=== PATIENT | male | born 1945 | race Caucasian/White ===

== ENCOUNTER → 2021-08-20 | Outpatient (CLI) | payer MEDICARE ==
--- NOTE | 2021-08-20 14:20 | Diagnostic Imaging Report ---
EXAMINATION: CT chest without contrast (lung screening). TECHNIQUE: Multiple contiguous axial images were obtained through the chest without the use of intravenous contrast according to lung cancer screening protocol. All CT scans use one or more of the following dose optimizing techniques: automated exposure control, MA and/or KvP adjustment based on patient size and exam type or iterative reconstruction. HISTORY: 60 pack year history of smoking. COMPARISON: None available. FINDINGS: There is no edema or pneumonia. No pleural effusion. No pneumothorax. There is a 5 mm left upper lobe pulmonary nodule. There is a small amount of mucus in the trachea. There is no axillary or supraclavicular lymphadenopathy. There is no mediastinal lymphadenopathy. Heart size is normal. There are moderate coronary artery calcifications. No pericardial effusion. Aorta is normal in caliber. Limited views of the upper abdomen are unremarkable. There are no suspicious osseus lesions. IMPRESSION: 1. No suspicious pulmonary nodules. LUNG-RADS CATEGORY: 2 MODIFIER: None. Dictated by: Dictated on workstation # [id number]
== END ==
LOC: RAD 13:45
PROVIDERS: ATTEND Family Medicine
DX: Z12.2 Encounter for screening for malignant neoplasm of respiratory organs (principal); Z87.891 Personal history of nicotine dependence
CPT/HCPCS: 71271

== ENCOUNTER 2022-03-01 02:22 | Observation (INO) | payer MEDICARE, OTHER ==
[2022-03-01] VITALS (8 sets, daily range): BP systolic 128–164; BP diastolic 74–85
[~2022-03-01] VITALS: Ht 188 cm; Wt 84.0 kg
[2022-03-01] MEDS ORDERED: LACTATED RINGERS 1,000 ML IV SCH (03:00)
[2022-03-01] MEDS ORDERED: ONDANSETRON 4 MG/2 ML (SDV) Z0FRAN IVP PRN (03:00)
[2022-03-01] MEDS ORDERED: LACTATED RINGERS 1,000 ML IV ONE (03:09)
[2022-03-01] MEDS ORDERED: MELO15TA39 PO (05:09)
[2022-03-01] MEDS ORDERED: AMLO-250 PO (05:09)
[2022-03-01] MEDS ORDERED: LOSA50TA63 PO (05:09)
[2022-03-01] MEDS ORDERED: EZET10TA49 PO (05:09)
[2022-03-01] MEDS ORDERED: LEVO137T32 PO (05:09)
[2022-03-01] MEDS ORDERED: LIDOCAINE PF 2% 5 ML (XYLOCAINE) VIAL ONE (08:31)
[2022-03-01] MEDS ORDERED: SEVOFLURANE (ULTANE) 15 ML INHAL SOLN ONE (08:31)
[2022-03-01] MEDS ORDERED: SUCCINYLCHOLINE INJ 100 MG/5 ML SYR/VIAL ONE (08:31)
[2022-03-01] MEDS ORDERED: proPOfol 200 MG/20 ML (DIPRIVAN) VIAL IV ONE (08:31)
--- NOTE | 2022-03-01 08:49 | Consultation - Surgery ---
History of Present Illness History of Present Illness Patient Consulted On(truman/time) 03/01/22 08:44 Time Seen by Provider: 08:22 History of Present Illness Pt is a 76 yo male who presented to [facility] with inability to swallow after eating steak. Stated he can't even swallow his spit. Pain was not too bad. When I saw him this morning he stated he thought the swallowing may have been a little better. ER last night told me he has had dilation of esophagus before, but he doesn't remember it. Had hiatal hernia repair 3 years ago, "my stomach was up above my diaphragm and my esophagus zig-zagged down". He stated he has not had an EGD since the surgery. Pain this am is 2-3 out of 10. He states this happens almost everytime he eats steak, "I let it slide down after chewing a bit, last night", "usually it passes after a little while, this time it didn't". Allergies and Home Medications Allergies Coded Allergies: No Known Drug Allergies (Unverified , 03/01/22) Patient Home Medication List Home Medication List Reviewed: Yes Amlodipine Besylate (Amlodipine Besylate) 5 Mg Tablet, 5 MG PO DAILY, (Reported) Entered as Reported by: KAI WALKER on 03/01/22508 Last Action: New Order Ezetimibe (Ezetimibe) 10 Mg Tablet, 10 MG PO DAILY, (Reported) Entered as Reported by: KAI WALKER on 03/01/22508 Last Action: New Order Levothyroxine Sodium (Synthroid) 137 Mcg Tablet, 137 MCG PO DAILY, (Reported) Entered as Reported by: KAI WALKER on 03/01/22508 Last Action: New Order Losartan Potassium (Losartan Potassium) 50 Mg Tablet, 50 MG PO BID, (Reported) Entered as Reported by: KAI WALKER on 03/01/22508 Last Action: New Order Meloxicam (Meloxicam) 15 Mg Tablet, 15 MG PO DAILY, (Reported) Entered as Reported by: KAI WALKER on 03/01/22508 Last Action: New Order Past [id number] Hx Patient Social History Smoking Status: Never a Smoker Type Used: Smokeless Tobacco Alcohol Use?: Yes Have you traveled recently?: No Surgeries History of Surgeries: Yes (hiatal hernia repair) Respiratory History of Respiratory Disorde: No Cardiovascular History of Cardiac Disorders: Yes Cardiac Disorders: Coronary Artery Disease, Hypertension Neurological History of Neurological Disord: No Reproductive System Hx Reproductive Disorders: No Gastrointestinal History of Gastrointestinal Di: Yes Gastrointestinal Disorders: Gastroesophageal Reflux, Esophagitis, Hiatal Hernia Musculoskeletal History of Musculoskeletal Dis: Yes Musculoskeletal Disorders: Arthritis Endocrine History of Endocrine Disorders: Yes Endocrine Disorders: Hypothyroidsim HEENT History of HEENT Disorders: Yes (poor dentition) Psychosocial History of Psychiatric Problem: No Family Medical History Significant Family History: Diabetes (brother) Review of Systems-General Constitutional: No fever, No malaise EENTM: dental problems, throat swelling; No blurred vision, No double vision, No mouth swelling Respiratory: No dyspnea on exertion, No short of breath Cardiovascular: No chest pain, No palpitations Gastrointestinal: abdominal pain; No nausea, No vomiting; other (can't swallow spit) Genitourinary: No dysuria, No hematuria Musculoskeletal: joint pain, joint swelling, muscle stiffness Skin: No change in color, No change in hair/nails Psychiatric/Neurological: Denies Anxiety, Denies Depressed, Denies Seizure Physical Exam-General Problems Physical Exam Vital Signs Vital Signs - First Documented 03/01/22 02:42 Temp 36.6 Pulse 80 Resp 18 B/P (MAP) 164/85 (111) Pulse Ox 98 O2 Delivery Room Air Capillary Refill : General Appearance: WD/WN, mild distress Eyes: Bilateral Eye PERRL, Bilateral Eye EOMI HEENT: pharynx normal; No scleral icterus (R), No scleral icterus (L); other (poor dentition) Respiratory: chest non-tender, lungs clear, normal breath sounds, no respiratory distress, no accessory muscle use Cardiovascular: regular rate, rhythm, no murmur Gastrointestinal: non tender, soft, no organomegaly, no pulsatile mass Back: no CVA tenderness, no vertebral tenderness Extremities: no pedal edema, no calf tenderness Neurologic/Psychiatric: corporate safety manager II-XII nml as tested, no motor/sensory deficits, alert, normal mood/affect, oriented x 3 Skin: normal color, warm/dry Lymphatic: no adenopathy (neck, axilla or groin) Assessment/Plan Assessment/Plan Assessment/Plan Dysphagia probable food bolus Plan EGD for removal of food, possible biopsy. Discussed risks and complications not limited to pain, bleeding and even possible esophageal perforation. We may also find the food has already passed. All questions answered to pt and his 's satisfaction. AYUSH RITTER DO March 01, 2022 08:49
[2022-03-01] MEDS ORDERED: LACTATED RINGERS 1,000 ML IV PRN (09:30)
--- NOTE | 2022-03-01 10:54 | Progress Note-Post Operative ---
Post-Operative Progess Note Surgeon (s)/Captain'S Assistant (s) Surgeon AYUSH RITTER DO Captain'S Assistant: none Pre-Operative Diagnosis Dysphagia, Food bolus Post-Operative Diagnosis same plus Erosive Esophagitis, Hiatal hernia Procedure & Operative Findings Date of Procedure 03/01/22 Procedure Performed/Findings EGD with removal of food bolus PROCEDURE NOTE: After informed consent was obtained, the patient was brought to the operating room, intubated in his bed and left in the supine position. The SENIOR ETL DEVELOPER then monitored his vitals the entire time, heart rate, blood pressure and pulse ox and the scope was inserted down the mouth and into the esophagus. On the way down noted a twist in the esophagus and then found the pieced of steak. Able to get a Paulson net around it, but had to take it in two pieces. Pushed the scope back down and into the stomach. On the way down, noted some severe erosive esophagitis and took a picture. Pushed into the stomach, pushed past the antrum into the duodenum. Duodenum looked good. Pulled back and retroflexed the scope, saw an appx 0.5cm hiatal hernia, took a picture of this and then pulled the scope into the GE junction, took another picture of the hiatal hernia. Then took pictures of the erosive esophagitis and then pushed the scope back into the stomach, suctioned all the air out of the stomach. At this point pulled the scope up the esophagus and out the mouth. The patient tolerated the procedure, and he recovered in endoscopy suite. Anesthesia Type GET Estimated Blood Loss Estimated blood loss (mL): none Specimens/Packing Specimens Removed none AYUSH RITTER DO March 01, 2022 10:54
[2022-03-01] MEDS ORDERED: SUCR1TAB36 PO (10:57)
[2022-03-01] MEDS ORDERED: PANT20TA18 PO (10:57)
--- NOTE | 2022-03-01 10:58 | Endoscopy Discharge Instruct ---
Endo Procedure/Findings Findings Procedure/Findings You must be on a liquid diet for the next 3-4 weeks 1.: Other Findings (Erosive Esophagitis) 2.: Hiatal Hernia Discharge Instructions - Activity: You might feel a little sleepy until tomorrow. This is due to the medicine you received to relax you. Until tomorrow, you should: NOT drive a car, operate machinery or power tools. NOT drink any alcoholic beverages. NOT make any important decisions or sign importortant papers. Do not return to work until tomorrow, unless otherwise instructed. Resume previous activities tomorrow. Diet: Start by taking liquids. If you tolerate liquids, advance to solid food. 1.: EGD in 6-8 weeks Notify Physician - If you experience excessive bleeding, unusual abdominal pain, fever, or chest pain, contact your doctor immediately. AYUSH RITTER DO March 01, 2022 10:58
--- NOTE | 2022-03-02 15:30 | Anesthesia-General Post-Op ---
MAC Patient Condition Mental Status/LOC: Same as Preop Cardiovascular: Satisfactory Nausea/Vomiting: Absent Respiratory: Satisfactory Pain: Controlled Complications: Absent Post Op Complications Complications None Follow Up Care/Instructions Patient Instructions None needed. Anesthesiology Discharge Order Discharge Order Patient is doing well, no complaints, stable vital signs, no apparent adverse anesthesia problems. No complications reported per nursing. LALO WILLIAM CRNA March 02, 2022 15:30
== END 2022-03-01 11:50 | disposition home or self-care (01) ==
LOC: 4TH 02:22
PROVIDERS: ADMIT Surgery; ATTEND Surgery
DX: T18.128A Food in esophagus causing other injury, initial encounter (principal); K22.10 Ulcer of esophagus without bleeding; K44.9 Diaphragmatic hernia without obstruction or gangrene
CPT/HCPCS: 87081

== ENCOUNTER 2022-04-09 05:34 | Outpatient (CLI) | payer MEDICARE, OTHER ==
[~2022-04-09] VITALS: Ht 188 cm; Wt 84.4 kg
[~2022-04-09 05:34] MED LIST: AMLO-250 PO; EZET10TA49 PO; LEVO137T32 PO; LOSA50TA63 PO; MELO15TA39 PO; PANT20TA18 PO; SUCR1TAB36 PO
== END 2022-04-14 10:58 | disposition home or self-care (01) ==
LOC: PREOP 05:34
PROVIDERS: ATTEND Surgery
DX: Z01.818 Encounter for other preprocedural examination (principal)

== ENCOUNTER 2022-04-21 07:15 | Day surgery (SDC) | payer MEDICARE, OTHER ==
[~2022-04-21] VITALS: Ht 188 cm; Wt 84.4 kg
[2022-04-21] MEDS ORDERED: LACTATED RINGERS 1,000 ML IV STA (07:21)
[2022-04-21] MEDS ORDERED: HURRICAINE EXT TUBE (BENZOCAINE) XX PRN (07:30)
[2022-04-21 07:38] VITALS: BP 165/75
[2022-04-21] MEDS ORDERED: PROPOFOL INJECTION 50 ML IV ONE (08:10)
[2022-04-21 08:30] VITALS: BP 108/65
--- NOTE | 2022-04-21 08:34 | Progress Note-Post Operative ---
Post-Operative Progess Note Surgeon (s)/Floating Derrick Operator (s) Surgeon AYUSH RITTER DO Floating Derrick Operator: none Pre-Operative Diagnosis Erosive Esophagitis Post-Operative Diagnosis mild gastritis mild esophagitis hiatal hernia Procedure & Operative Findings Date of Procedure 04/21/22 Procedure Performed/Findings EGD with bx PROCEDURE NOTE: After informed consent was obtained, the patient was brought to the endoscopy suite, placed in bed in left lateral decubitus position. He was administered IV sedation by the PATHOLOGY SPECIALIST who then monitored vitals the entire time, heart rate, blood pressure and pulse ox and the scope was inserted down the mouth through the esophagus into the stomach. On the way down, noted some very mild esophagitis, took a picture, pushed into the stomach, pushed past the antrum into the duodenum. Duodenum looked good. Pulled back and did a biopsy of antrum, then retroflexed the scope, saw hiatal hernia, took a picture of this and then pulled the scope into the GE junction, took another picture of the hiatal hernia and then did a biopsy of the GE junction. Pushed the scope back into the stomach and did a biopsy of the body of the stomach. Next suctioned all the air out of the stomach. At this point pulled the scope up the esophagus and out of the mouth. The esophagus looked completely healed and the GE junction did not appear strictured; very easily got the scope into the stomach. The patient tolerated the procedure, and he recovered in endoscopy suite. Anesthesia Type IV sedation by PATHOLOGY SPECIALIST Estimated Blood Loss Estimated blood loss (mL): scant Specimens/Packing Specimens Removed antral bx body of stomach bx GE jxn bx AYUSH RITTER DO Apr 21, 2022 08:34
[2022-04-21 08:35] VITALS: BP 112/62
--- NOTE | 2022-04-21 08:35 | Endoscopy Discharge Instruct ---
Endo Procedure/Findings Findings 1.: Gastritis 2.: Hiatal Hernia Discharge Instructions - Activity: You might feel a little sleepy until tomorrow. This is due to the medicine you received to relax you. Until tomorrow, you should: NOT drive a car, operate machinery or power tools. NOT drink any alcoholic beverages. NOT make any important decisions or sign importortant papers. Do not return to work until tomorrow, unless otherwise instructed. Resume previous activities tomorrow. Diet: Start by taking liquids. If you tolerate liquids, advance to solid food. 1.: EGD in 1 year Notify Physician - If you experience excessive bleeding, unusual abdominal pain, fever, or chest pain, contact your doctor immediately. AYUSH RITTER DO Apr 21, 2022 08:35
[2022-04-21 08:40] VITALS: BP 117/73
[2022-04-21 09:04] VITALS: BP 149/77
[2022-04-21 09:05] VITALS: BP 149/77
--- NOTE | 2022-04-21 11:35 | Anesthesia-General Post-Op ---
MAC Patient Condition Mental Status/LOC: Same as Preop Cardiovascular: Satisfactory Nausea/Vomiting: Absent Respiratory: Satisfactory Pain: Controlled Complications: Absent Post Op Complications Complications None Follow Up Care/Instructions Patient Instructions None needed. Anesthesiology Discharge Order Discharge Order Patient is doing well, no complaints, stable vital signs, no apparent adverse anesthesia problems. No complications reported per nursing. DEAN SWAIN CRNA Apr 21, 2022 11:35
== END 2022-04-21 09:10 | disposition home or self-care (01) ==
LOC: ENDO 07:15
PROVIDERS: ATTEND Surgery
DX: K29.50 Unspecified chronic gastritis without bleeding (principal); K20.90 Esophagitis, unspecified without bleeding; K44.9 Diaphragmatic hernia without obstruction or gangrene; Z87.891 Personal history of nicotine dependence
CPT/HCPCS: 88305

== ENCOUNTER → 2022-11-17 | Outpatient (CLI) | payer MEDICARE, OTHER ==
--- NOTE | 2022-11-17 12:15 | Diagnostic Imaging Report ---
PROCEDURE: CT head without contrast. TECHNIQUE: Multiple contiguous axial images were obtained through the brain without the use of intravenous contrast. Auto Exposure Controls were utilized during the CT exam to meet ALARA standards for radiation dose reduction. INDICATION: Hyponatremia. COMPARISON: No prior studies are available for comparison. FINDINGS: The ventricles and sulci are within normal limits. No sulcal effacement or midline shift is identified. No acute intra-axial or extra-axial hemorrhage is detected. The cisterns are patent. The visualized paranasal sinuses are clear. There appear to be bilateral mastoid effusions. IMPRESSION: No acute intracranial process is detected. Dictated by: Dictated on workstation # [id number]
== END ==
LOC: RAD 10:47
PROVIDERS: ATTEND Family Medicine
DX: E87.1 Hypo-osmolality and hyponatremia (principal)
CPT/HCPCS: 70450

== ENCOUNTER → 2022-11-27 | Outpatient (CLI) | payer MEDICARE, OTHER ==
--- NOTE | 2022-11-27 15:46 | Diagnostic Imaging Report ---
CT Lung Screening INDICATION:62 pack year smoking history, cessation 15 years ago. TECHNIQUE: Noncontrast, low-dose CT imaging performed according to the lung cancer screening protocol. Auto Exposure Controls were utilize during the CT exam to meet ALARA standards for radiation dose reduction. COMPARISON:Compared with exam 08/20/2021. FINDINGS:4.9 mm stable nodule left upper lobe unchanged. No new or suspicious mass. Benign calcified lymph nodes in the tavares and mediastinum stable. Benign juxta fissural granuloma in the right middle lobe stable. No findings to suggest lung cancer. There is a small hiatal hernia chronic. Visualized upper abdomen nonacute. No chest effusion. There is coronary artery atherosclerotic vascular calcifications. IMPRESSION:Stable benign-appearing left upper lobe lung nodule. No findings to suggest lung cancer. LUNG-RADS CATEGORY:Category 2 MODIFIER:None OTHER SIGNIFICANT FINDINGS:Coronary atherosclerotic calcifications and benign granulomatous residua. Dictated by: Dictated on workstation # [id number]
== END ==
LOC: RAD 11:03
PROVIDERS: ATTEND Family Medicine
DX: Z12.2 Encounter for screening for malignant neoplasm of respiratory organs (principal); Z87.891 Personal history of nicotine dependence
CPT/HCPCS: 71271

== ENCOUNTER 2023-03-25 05:56 | Outpatient (CLI) | payer MEDICARE, OTHER ==
[~2023-03-25] VITALS: Ht 188 cm; Wt 89.8 kg
[2023-03-25] MEDS ORDERED: CETI10TA17 PO (13:29)
== END 2023-03-25 13:31 | disposition home or self-care (01) ==
LOC: PREOP 05:56
PROVIDERS: ATTEND Surgery
DX: Z01.818 Encounter for other preprocedural examination (principal)

== ENCOUNTER 2023-04-06 09:43 | Day surgery (SDC) | payer MEDICARE, OTHER ==
[~2023-04-06] VITALS: Ht 188 cm; Wt 89.8 kg
[~2023-04-06 09:43] MED LIST changes: +CETI10TA17 PO
[2023-04-06] MEDS ORDERED: LACTATED RINGERS 1,000 ML IV STA (09:46)
[2023-04-06 10:09] VITALS: BP 146/95
[2023-04-06] MEDS ORDERED: PROPOFOL INJECTION 50 ML IV ONE (10:43)
--- NOTE | 2023-04-06 10:43 | Progress Note-Pre Operative ---
Pre-Operative Progress Note Date of Available H&P: March 24, 2023 Date H&P Reviewed: Apr 06, 2023 Time H&P Reviewed: 10:41 History & Physical: H&P Reviewed, Patient Examed, No changes noted Pre-Operative Diagnosis: +CologAYUSH Cope DO Apr 06, 2023 10:43
[2023-04-06] MEDS ORDERED: HURRICAINE EXT TUBE (BENZOCAINE) ONE (11:17)
[2023-04-06 11:56] VITALS: BP 111/74
--- NOTE | 2023-04-06 12:00 | Progress Note-Post Operative ---
Post-Operative Progess Note Surgeon (s)/Ice Cream Maker (s) Surgeon AYUSH RITTER DO Ice Cream Maker: none Pre-Operative Diagnosis +Cologuard, Dysphagia Post-Operative Diagnosis Severe Esophagitis ??esophageal Stricture Hiatal hernia Polyps diverticula int hemorrhoids Procedure & Operative Findings Date of Procedure 04/06/23 Procedure Performed/Findings EGD with biopsy Colonoscopy with biopsy INDICATIONS: Pt was complaining of dysphagia, he had previous EGD for food bolus and just prior to this procedure wanted to add EGD because he has been having increasing dysphagia and was worried about it. We discussed EGD with risks and complications; all questions answered to his satisfaction. PROCEDURE NOTE: After informed consent was obtained, the patient was brought to the endoscopy suite, placed in bed in left lateral decubitus position. He was administered IV sedation by the RESIDENTIAL LIFE DIRECTOR who then monitored vitals the entire time, heart rate, blood pressure and pulse ox and the scope was inserted down the mouth through the esophagus into the stomach. On the way down, noted some severe esophagitis and possibly stricture; took a picture. Then pushed into the stomach, pushed past the antrum into the duodenum. Duodenum looked good. Pulled back and did a biopsy of the antrum, then retroflexed the scope, saw a large hiatal hernia, took a picture of this and then pulled the scope into the GE junction, took another picture of the hiatal hernia and then did a biopsy of the GE junction. Pushed the scope back into the stomach, suctioned all the air out of the stomach. At this point pulled the scope up the esophagus and out the mouth. Switched camera, switched gloves, went down below and started the colonoscopy. Pushed all the way to about 150 cm and pushed into the cecum, took a picture of appendiceal orifice and noted the ileocecal valve. Then slowly withdrew the scope insufflating to look circumferentially at the johnson starting in the cecum and up the ascending colon. Just outside the cecum found a polyp and did a snare to remove it completely. Continued up to the hepatic flexure, then down the transverse colon, splenic flexure, into the descending colon down in the sigmoid and then into the rectal vault and retroflexed the scope. I found two polyps in the rectum and removed them with the snare. Took a picture of the internal hemorrhoids and had taken picture of the diverticula. The patient tolerated the procedure and he recovered in the endoscopy suite. Recommended for repeat colonoscopy in 5 years Anesthesia Type IV sedation by RESIDENTIAL LIFE DIRECTOR Estimated Blood Loss Estimated blood loss (mL): scant Specimens/Packing Specimens Removed antral bx GE jxn bx Asc colon polyp rectal polyp x 2 AYUSH RITTER DO Apr 06, 2023 12:00
[2023-04-06 12:11] VITALS: BP 124/76
[2023-04-06 12:18] VITALS: BP 124/76
[2023-04-06] MEDS ORDERED: SUCR1TAB36 PO (12:19)
--- NOTE | 2023-04-06 12:19 | Anesthesia-General Post-Op ---
MAC Patient Condition Mental Status/LOC: Same as Preop Cardiovascular: Satisfactory Nausea/Vomiting: Absent Respiratory: Satisfactory Pain: Controlled Complications: Absent Post Op Complications Complications None Follow Up Care/Instructions Patient Instructions None needed. Anesthesiology Discharge Order Discharge Order Patient is doing well, no complaints, stable vital signs, no apparent adverse anesthesia problems. No complications reported per nursing. SETH BELTRAN CRNA Apr 06, 2023 12:19
--- NOTE | 2023-04-06 12:20 | Endoscopy Discharge Instruct ---
Endo Procedure/Findings Findings 1.: Stricture, Other Findings (severe Esophagitis) 2.: Hiatal Hernia 3.: Polyp 4.: Diverticulosis, Internal Hemorrhoids Discharge Instructions - Activity: You might feel a little sleepy until tomorrow. This is due to the medicine you received to relax you. Until tomorrow, you should: NOT drive a car, operate machinery or power tools. NOT drink any alcoholic beverages. NOT make any important decisions or sign importortant papers. Do not return to work until tomorrow, unless otherwise instructed. Resume previous activities tomorrow. Diet: Start by taking liquids. If you tolerate liquids, advance to solid food. 1.: EGD in 6-8 weeks 2.: Colonscopy in 5 years Notify Physician - If you experience excessive bleeding, unusual abdominal pain, fever, or chest pain, contact your doctor immediately. Follow-Up: Other Follow up in my office in one week AYUSH RITTER DO Apr 06, 2023 12:20
== END 2023-04-06 12:36 | disposition home or self-care (01) ==
LOC: ENDO 09:43
PROVIDERS: ATTEND Surgery
DX: Z12.11 Encounter for screening for malignant neoplasm of colon (principal); K63.5 Polyp of colon; K62.1 Rectal polyp; K21.00 Gastro-esophageal reflux disease with esophagitis, without bleeding; K44.9 Diaphragmatic hernia without obstruction or gangrene; K57.30 Diverticulosis of large intestine without perforation or abscess without bleeding; K64.8 Other hemorrhoids; K29.50 Unspecified chronic gastritis without bleeding; Z87.891 Personal history of nicotine dependence